=== PATIENT | female | born 1960 | race Hispanic/Latino ===

== ENCOUNTER → 2018-08-28 | Outpatient (CLI) | payer OTHER, SELFPAY | END | disposition home or self-care (01) | LOC: OIH 10:44 | PROVIDERS: ATTEND Internal Medicine Cardiovascular Disease | DX: Z13.6 Encounter for screening for cardiovascular disorders (principal) | CPT/HCPCS: 75571 ==

== ENCOUNTER 2018-09-19 08:30 | Emergency (ER) | payer OTHER ==
[2018-09-19 08:48] LABS: APPEARANCE,URINE Cloudy (CLEAR); BILIRUBIN,URINE Negative (NEGATIVE); COLOR,URINE Dark Yellow (YELLOW); GLUCOSE, URINE (UA) Negative (NEGATIVE); KETONES,URINE Negative (NEGATIVE); LEUKOCYTE ESTERASE ,URINE Negative (NEGATIVE); NITRATE,URINE Negative (NEGATIVE); OCCULT BLOOD,URINE Negative (NEGATIVE); PROTEIN,URINE Negative (NEGATIVE); UROBILINOGEN,URINE 0.2 mg/dL (0.2-1.0)
[2018-09-19 09:01] LABS: RBC,URINE 0-1 /HPF (0-1)
[2018-09-19 09:02] LABS: BACTERIA,URINE Moderate /HPF (None Seen)
[2018-09-19] MEDS ORDERED: IBUPROFEN 400 MG TABLET ONE (09:19)
[2018-09-19 09:35] LABS: AMPHET/METH SCREEN,URINE NEGATIVE (NEGATIVE); BARBITURATE SCREEN, URINE NEGATIVE (NEGATIVE); BENZODIAZEPINES SCREEN,URINE NEGATIVE (NEGATIVE); CANNABINOID SCREEN,URINE NEGATIVE (NEGATIVE); COCAINE SCREEN,URINE NEGATIVE (NEGATIVE); OPIATE SCREEN,URINE NEGATIVE (NEGATIVE); PHENCYCLIDINE SCREEN,URINE NEGATIVE (NEGATIVE)
[2018-09-19 09:43] LABS: CREATININE 0.6 mg/dL (0.5-1.5); POTASSIUM 4.2 mmol/L (3.5-5.1)
== END 2018-09-19 11:11 | disposition home or self-care (01) ==
LOC: EDH 08:30
DX: R51 Headache (principal); R06.02 Shortness of breath; M54.2 Cervicalgia; I10 Essential (primary) hypertension; Z90.710 Acquired absence of both cervix and uterus; Z90.49 Acquired absence of other specified parts of digestive tract
CPT/HCPCS: 36415; 70450; 80048; 80305; 81001; 93975

== ENCOUNTER → 2018-09-19 | Outpatient (CLI) | payer OTHER | END | disposition home or self-care (01) | LOC: SHCH 07:48 | PROVIDERS: ATTEND Internal Medicine Cardiovascular Disease | DX: I10 Essential (primary) hypertension (principal); M62.838 Other muscle spasm | CPT/HCPCS: 93975 ==

== ENCOUNTER 2020-02-24 17:47 | Emergency (ER) | payer OTHER ==
[2020-02-24] MEDS ORDERED: ASPIRIN 325 MG TABLET ONE (18:02)
[2020-02-24 18:06] LABS: BASOPHILS % (AUTO) 0.6 % (0.0-5.0); EOSINOPHILS % (AUTO) 1.4 % (0.0-8.0); HEMATOCRIT 40.7 % (36-48); LYMPHOCYTES % (AUTO) 28.6 % (21.0-51.0); MEAN CORPUSCULAR HEMOGLOBIN 30.3 pg (27.0-33.0); MEAN CORPUSCULAR HGB CONC 33.4 g/dL (32.0-36.0); MEAN CORPUSCULAR VOLUME 90.6 fL (79-99); MONOCYTES % (AUTO) 5.9 % (3.0-13.0); NEUTROPHILS % (AUTO) 63.1 % (40.0-77.0); PLATELET COUNT (AUTO) 279 K/uL (130-400); RED BLOOD CELL COUNT(AUTO) 4.49 MIL/uL (4.00-5.50); RED CELL DISTRIBUTION WIDTH 12.6 % (11.0-15.5)
[2020-02-24 18:18] LABS: CREATININE 0.9 mg/dL (0.5-1.5); POTASSIUM 3.4 mmol/L (3.5-5.1)
[2020-02-24 18:19] LABS: INR 0.93 (0.85-1.15); PARTIAL THROMBOPLASTIN TIME 27.2 SEC (26.3-35.5); PROTHROMBIN TIME 10.1 SEC (9.6-11.6)
[2020-02-24 18:23] LABS: ALBUMIN 3.9 g/dL (3.5-5.0); BILIRUBIN,TOTAL 0.6 mg/dL (0.2-1.0); TOTAL PROTEIN, SERUM 7.6 g/dL (6.0-8.3)
== END 2020-02-24 19:16 | disposition home or self-care (01) ==
LOC: EDH 17:47
DX: R00.2 Palpitations (principal); I10 Essential (primary) hypertension; E03.9 Hypothyroidism, unspecified; Z90.49 Acquired absence of other specified parts of digestive tract; Z90.710 Acquired absence of both cervix and uterus
CPT/HCPCS: 36415; 71045; 80053; 82550; 84484; 85025; 85610; 85730; 93005

== ENCOUNTER 2020-02-25 18:36 | Inpatient (IN) | payer OTHER ==
[~2020-02-25] VITALS: Ht 162.6 cm; Wt 96.2 kg
[2020-02-25 19:59] LABS: BASOPHILS % (AUTO) 0.6 % (0.0-5.0); HEMATOCRIT 39.8 % (36-48); LYMPHOCYTES % (AUTO) 27.2 % (21.0-51.0); MEAN CORPUSCULAR HEMOGLOBIN 30.6 pg (27.0-33.0); MEAN CORPUSCULAR HGB CONC 34.2 g/dL (32.0-36.0); MEAN CORPUSCULAR VOLUME 89.6 fL (79-99); MONOCYTES % (AUTO) 6.3 % (3.0-13.0); NEUTROPHILS % (AUTO) 64.8 % (40.0-77.0); PLATELET COUNT (AUTO) 266 K/uL (130-400); RED BLOOD CELL COUNT(AUTO) 4.44 MIL/uL (4.00-5.50); RED CELL DISTRIBUTION WIDTH 12.6 % (11.0-15.5); WHITE BLOOD COUNT (AUTO) 6.8 K/uL (4.8-10.8)
[2020-02-25 20:32] LABS: CREATININE 0.8 mg/dL (0.5-1.5); POTASSIUM 3.5 mmol/L (3.5-5.1)
[2020-02-25 20:32] LABS: AMPHET/METH SCREEN,URINE NEGATIVE (NEGATIVE); BARBITURATE SCREEN, URINE NEGATIVE (NEGATIVE); BENZODIAZEPINES SCREEN,URINE NEGATIVE (NEGATIVE); CANNABINOID SCREEN,URINE NEGATIVE (NEGATIVE); COCAINE SCREEN,URINE NEGATIVE (NEGATIVE); OPIATE SCREEN,URINE NEGATIVE (NEGATIVE); PHENCYCLIDINE SCREEN,URINE NEGATIVE (NEGATIVE)
[2020-02-25 20:36] LABS: BILIRUBIN,TOTAL 0.7 mg/dL (0.2-1.0)
[2020-02-25 20:37] LABS: ALBUMIN 3.9 g/dL (3.5-5.0); TOTAL PROTEIN, SERUM 7.2 g/dL (6.0-8.3)
[2020-02-25] MEDS ORDERED: SODIUM CHLORIDE 0.9% 1000ML 1,000 ML IV SCH (20:45)
[2020-02-25] MEDS ORDERED: KETOROLAC TROMETHAMINE 15MG/ML IV PRN (21:00)
[2020-02-25] MEDS: FAMOTIDINE/PF 20 MG/2 ML VIAL IV SCH (21:00)
[2020-02-25] MEDS ORDERED: ONDANSETRON HCL 4 MG/2 ML VIAL IVP PRN (21:00)
[2020-02-25] MEDS ORDERED: HYDRALAZINE HCL 20 MG/ML VIAL IV PRN (21:00)
[2020-02-25] MEDS ORDERED: SODIUM CHLORIDE 0.9% 1000ML 1,000 ML IV ONE (21:33)
[2020-02-25] MEDS ORDERED: KETOROLAC TROMETHAMINE 15MG/ML ONE (21:33)
--- NOTE | 2020-02-26 02:00 | NUR ---
PATIENT ARRIVED ON UNIT. DENIES PALPITATIONS. NO CHEST PAIN OR SOB. 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 RESTING IN BED. HOME MEDICATIONS ENTERED.
--- NOTE | 2020-02-26 02:30 | NUR ---
24 HOUR URINE COLLECTION STARTED
[2020-02-26 02:37] VITALS: BP 105/77
[2020-02-26 04:00] VITALS: BP 97/62
[2020-02-26 05:51] LABS: BASOPHILS % (AUTO) 0.8 % (0.0-5.0); EOSINOPHILS % (AUTO) 1.4 % (0.0-8.0); HEMATOCRIT 36.7 % (36-48); LYMPHOCYTES % (AUTO) 34.1 % (21.0-51.0); MEAN CORPUSCULAR HEMOGLOBIN 30.8 pg (27.0-33.0); MEAN CORPUSCULAR HGB CONC 33.5 g/dL (32.0-36.0); MEAN CORPUSCULAR VOLUME 91.8 fL (79-99); MONOCYTES % (AUTO) 7.9 % (3.0-13.0); NEUTROPHILS % (AUTO) 55.6 % (40.0-77.0); PLATELET COUNT (AUTO) 236 K/uL (130-400); RED CELL DISTRIBUTION WIDTH 12.6 % (11.0-15.5); WHITE BLOOD COUNT (AUTO) 6.2 K/uL (4.8-10.8)
[2020-02-26 06:06] LABS: HEMOGLOBIN A1C 6.2 % (4.0-6.0)
[2020-02-26 06:29] LABS: ALANINE AMINOTRANSFERASE 37 U/L (12-78); ALBUMIN 3.3 g/dL (3.5-5.0); ASPARTATE AMINOTRANSFERASE 17 U/L (10-37); BILIRUBIN,TOTAL 0.7 mg/dL (0.2-1.0); CARBON DIOXIDE 30 mmol/L (21-32); CHLORIDE 107 mmol/L (101-111); CHOLESTEROL 111 mg/dL (<200); CREATINE KINASE, TOTAL 37 U/L (21-232); CREATININE 0.8 mg/dL (0.5-1.5); GLOMERULAR FILTR. RATE CALC 78 mL/min (>60); GLUCOSE,RANDOM 97 mg/dL (70-105); HDL CHOLESTEROL 35 mg/dL (35-85); LDL DIRECT 64 mg/dL (0-99); MYOGLOBIN 44 ng/mL (10-92); POTASSIUM 3.8 mmol/L (3.5-5.1); SODIUM SERUM 142 mmol/L (136-145); TOTAL PROTEIN, SERUM 6.5 g/dL (6.0-8.3); TRIGLYCERIDES 72 mg/dL (30-200); TROPONIN I < 0.04 ng/mL (0.00-0.06); UREA NITROGEN, BLOOD 11 mg/dL (7-18)
[2020-02-26 07:00] VITALS: BP 104/58
--- NOTE | 2020-02-26 07:35 | NUR ---
ASSESSMENT ENCOUNTERED PT A&OX3, CALM COOPERATIVE AND DOES NOT APPEAR TO BE IN ANY DISTRESS NOR ANY NEURO DEFICITS PRESENT. PT DENIES PAIN, SOB, NAUSEA. PT IS AMBULATORY, GAIT STEADY AND STRONG WITH STAND BY ASSIST. PT IS NPO UNTIL SEEN BY HOSPITALIST. CALL LIGHT WITHIN REACH.
[2020-02-26] MEDS ORDERED: ATEN100T PO (07:38)
[2020-02-26] MEDS ORDERED: LISI-613 PO (07:38)
[2020-02-26] MEDS ORDERED: LEVO100 PO (07:38)
[2020-02-26] MEDS ORDERED: ATOR20TA65 PO (07:38)
[2020-02-26] MEDS: FAMOTIDINE/PF 20 MG/2 ML VIAL IV SCH (10:01)
[2020-02-26] MEDS ORDERED: ESTR1TAB17 PO (10:21)
[2020-02-26] MEDS ORDERED: ASPI-1197 PO (10:21)
[2020-02-26] MEDS ORDERED: VITA1TAB22 PO (10:33)
[2020-02-26] MEDS ORDERED: SUMA50TA17 PO (10:33)
[2020-02-26] MEDS ORDERED: CIDE500T PO (10:33)
[2020-02-26] MEDS ORDERED: CHOL2000 PO (10:33)
--- NOTE | 2020-02-26 12:00 | NUR ---
AGAINST MEDICAL ADVICE DR NEIL AT BEDSIDE AND INFORMED OF RISKS OF LEAVING AGAINST MEDICAL ADVICE, FORM SIGNED, PT TAKEN TO FAMILY VEHICLE VIA WHEELCHAIR.
== END 2020-02-26 12:03 | disposition left against medical advice (07) | DRG 392 ==
LOC: EDH 18:36 → EDHIP 20:28 → 4DH 02-26 02:15
PROVIDERS: ADMIT Internal Medicine; ATTEND Internal Medicine
DX: K59.00 Constipation, unspecified (principal); I10 Essential (primary) hypertension; R00.2 Palpitations; E03.9 Hypothyroidism, unspecified; R03.0 Elevated blood-pressure reading, without diagnosis of hypertension; R51 Headache; Z90.710 Acquired absence of both cervix and uterus
CPT/HCPCS: 36415; 71045; 74176; 80053; 80061; 80305; 82550; 83036; 83874; 84443; 84484; 85025; 85610; 85730; 93005; G0378; J1885; J3490; J7030

== ENCOUNTER → 2020-03-26 | Outpatient (CLI) | payer OTHER ==
[~2020-03-26] MED LIST: ASPI-1197 PO; ATEN100T PO; ATOR20TA65 PO; CHOL2000 PO; CIDE500T PO; ESTR1TAB17 PO; LEVO100 PO; LISI-613 PO; SUMA50TA17 PO; VITA1TAB22 PO
== END | disposition home or self-care (01) ==
LOC: SHCH 12:42
PROVIDERS: ATTEND Internal Medicine Cardiovascular Disease
DX: I10 Essential (primary) hypertension (principal)
CPT/HCPCS: 93306; 93356

== ENCOUNTER 2024-10-02 15:44 | Emergency (ER) | payer BC, OTHER ==
[~2024-10-02] VITALS: Ht 157.5 cm; Wt 97.5 kg
[~2024-10-02 15:44] MED LIST changes: -LISI-613 PO; +LISI20TA24 PO; +VITA-427 PO; -VITA1TAB22 PO
[2024-10-02 16:09] LABS: APPEARANCE,URINE CLEAR (CLEAR); BILIRUBIN,URINE NEGATIVE (NEGATIVE); COLOR,URINE YELLOW (YELLOW); GLUCOSE, URINE (UA) NEGATIVE (NEGATIVE); KETONES,URINE 5 mg/dL (NEGATIVE); LEUKOCYTE ESTERASE ,URINE 250 Leu/uL (NEGATIVE); NITRATE,URINE NEGATIVE (NEGATIVE); OCCULT BLOOD,URINE NEGATIVE (NEGATIVE); PH,URINE 5.5 (5.0-8.0); PROTEIN,URINE 30 mg/dL (NEGATIVE)
[2024-10-02 16:12] LABS: ADD UA MICROSCOPIC YES
[2024-10-02 16:15] LABS: BACTERIA,URINE RARE /HPF (None Seen); MUCUS,URINE RARE LPF (None Seen); OTHER CASTS, URINE 5 /LPF (None Seen); SQUAMOUS EPITHELIAL CELL,UR FEW /HPF (0-2)
[2024-10-02 16:37] LABS: BASOPHILS # (AUTO) 0.05 K/uL (0.00-0.20); BASOPHILS % (AUTO) 0.5 % (0.0-5.0); EOSINOPHILS # (AUTO) 0.06 K/uL (0.00-0.70); EOSINOPHILS % (AUTO) 0.6 % (0.0-8.0); HEMATOCRIT 42.3 % (36-48); IMMATURE GRANULOCYTE ABSOLUTE 0.03 K/uL (0-1); LYMPHOCYTES # (AUTO) 1.5 K/uL (1.0-4.8); LYMPHOCYTES % (AUTO) 15.8 % (21.0-51.0); MEAN CORPUSCULAR HEMOGLOBIN 29.6 pg (27.0-33.0); MEAN CORPUSCULAR HGB CONC 33.3 g/dL (32.0-36.0); MEAN CORPUSCULAR VOLUME 88.7 fL (79-99); MONOCYTES # (AUTO) 0.6 K/uL (0.1-1.0); MONOCYTES % (AUTO) 6.6 % (3.0-13.0); NEUTROPHILS # (AUTO) 7.4 K/uL (1.8-7.7); NEUTROPHILS % (AUTO) 76.2 % (40.0-77.0); PLATELET COUNT (AUTO) 323 K/uL (130-400); RED BLOOD CELL COUNT(AUTO) 4.77 MIL/uL (4.00-5.50); RED CELL DISTRIBUTION WIDTH 13.2 % (11.0-15.5); WHITE BLOOD COUNT (AUTO) 9.7 K/uL (4.8-10.8)
[2024-10-02] MEDS: 0.9%NACL 1000ML 1,000 ML IV ONE (16:38)
[2024-10-02 16:51] LABS: CREATININE 1.3 mg/dL (0.5-1.0)
[2024-10-02 17:01] LABS: POTASSIUM 2.9 mmol/L (3.5-5.1)
--- NOTE | 2024-10-02 17:01 | HMCIMG ---
CHEST 1VW HISTORY: Syncope COMPARISON: 02/24/2020 FINDINGS: A frontal projection of the chest was obtained. No acute pulmonary infiltrates is seen. The heart is borderline enlarged. No evidence of aortic calcification is seen. IMPRESSION: 1. No acute pulmonary infiltrate is seen.
--- NOTE | 2024-10-02 17:34 | ERN ---
General Chief Complaint: Syncope Stated Complaint: NEAR SYNCOPE Time Seen by MD: 17:09 Time Seen by Midlevel: 17:09 Source: patient History of Present Illness Initial Comments Patient is a 64-year-old female with a past medical history of hypertension presenting to the emergency department for evaluation of dizziness, muscle cramping, and generalized body weakness. She was seen at a local urgent care proximally one week ago for the same complaint and was told she was dehydrated. Current medications include amlodipine, and hydrochlorothiazide. Allergies: Coded Allergies: No Known Drug Allergies (Verified Allergy, Unknown, 02/25/20) Home Meds Reported Medications Cider Vinegar (Apple Cider Vinegar) 500 Mg Tablet, 450 MG PO DAILY, TAB 02/26/20 Cholecalciferol (Vitamin D3) (Vitamin D3) 50 Mcg Capsule, 50 MCG PO DAILY, CAP 02/26/20 Vitamin B Complex (Vitamin B Complex) 1 Each Tablet, 1 EACH PO DAILY, TAB 02/26/20 Sumatriptan Succinate (Sumatriptan Succinate) 50 Mg Tablet, 50 MG PO AD, TAB 02/26/20 Aspirin (Aspirin) 81 Mg Tab.chew, 81 MG PO DAILY, TAB.CHEW 02/26/20 Estradiol (Estradiol) 1 Mg Tablet, 1 MG PO DAILY, TAB 02/26/20 Levothyroxine Sodium (Levothroid/Synthroid) 100 Mcg Tab, 100 MCG PO AM 02/26/20 Lisinopril (Lisinopril) 20 Mg Tablet, 20 MG PO QDP 02/26/20 Atenolol (Atenolol) 100 Mg Tablet, 100 MG PO BID 02/26/20 Atorvastatin Calcium (Atorvastatin Calcium) 20 Mg Tablet, 20 MG PO QDP 02/26/20 Past Medical History Past Medical History: High Cholesterol, Hypertension, Hypothyroid, Migraines Past Surgical History: None ROS Dictation CONSTITUTIONAL: Negative except for HPI HEAD/FACE: Negative except for HPI EENT: Negative except for HPI RESPIRATORY: Negative except for HPI GASTROINTESTINAL/ABDOMINAL: Negative except for HPI GENITOURINARY: Negative except for HPI MUSCULOSKELETAL: Negative except for HPI INTEGUMENTARY: Negative except for HPI NEUROLOGICAL/PSYCH: Negative except for HPI HEMATOLOGIC/LYMPHATIC: Negative except for HPI All Systems Negative, Except as noted above. 13 point review of systems assessed and all negative except for above. Physical Exam Physical Exam Dictation Vital Signs reviewed General Appearance: Alert, oriented x 3, no acute distress, well developed, nourished. Head and Face: non-traumatic. Eyes: PERRL, pink conjunctivas, eyelid no trauma, anterior chamber with arcus senilis. Ears: Pinnas intact and no signs of trauma or erythema ear canals clear and no discharge TM no erythema Nose: No discharge, no bleeding. Oropharynx: Mouth normal, tongue pink, pharynx clear,no erythema, tonsils no exudates, no abscesses noted, mucous membrane moist Neck: Supple, non-tender, no thyromegaly, no masses, no JVD, no bruits Breast:Deferred Chest:No tenderness, no crepitus, no paradoxical movement, no retractions Lungs:Clear, well-ventilated, symmetric, no rales, no wheezing, no rhonchi, no stridor, good breath sounds bilaterally Heart: Regular rate, regular rhythm, no murmur, no gallops Vascular: no peripheral edema, Abdomen: Soft, positive bowel sounds, nondistended, no guarding, nontender, no rebound, no masses no hepatomegaly, no splenomegaly, no Howard's sign, no hernias. Rectal: Deferred Genital: Deferred Neurological: Normal speech, motor function intact, sensory function intact Musculoskeletal: Neck nontender, full range of motion, back nontender, full range of motion, Extremities: nontender, full range of motion Skin: Color pink, dry, no turgor, no rash, no lacerations, no abrasions, no contusions. Lymphatic: Deferred Results Laboratory and Microbiology Lab and Micro Result Laboratory Tests Test 10/02/24 16:00 10/02/24 16:16 Urine Color YELLOW (YELLOW) Urine Appearance CLEAR (CLEAR) Urine pH 5.5 (5.0-8.0) Urine Specific [place] 1.026 (1.001-1.031) Urine Protein 30 mg/dL (NEGATIVE) H Urine Glucose (UA) NEGATIVE mg/dL (NEGATIVE) Urine Ketones 5 mg/dL (NEGATIVE) H Urine Occult Blood NEGATIVE (NEGATIVE) Urine Nitrate NEGATIVE (NEGATIVE) Urine Bilirubin NEGATIVE mg/dL (NEGATIVE) Urine Urobilinogen 2.0 mg/dL (0.2-1.0) H Urine Leukocyte Esterase 250 Pb/uL (NEGATIVE) H Urine RBC 2-5 /HPF (0-1) H Urine WBC 11-25 /HPF (0-1) H Urine Squamous Epithelial Cells FEW /HPF (0-2) Urine Bacteria RARE /HPF (None Seen) Urine Hyaline Casts 11-25 /LPF (0-1 /LPF) H Urine Other Casts 5 /LPF (None Seen) White Blood Count 9.7 K/uL (4.8-10.8) Red Blood Count 4.77 MIL/uL (4.00-5.50) Hemoglobin 14.1 g/dL (12.0-16.0) Hematocrit 42.3 % (36-48) Mean Corpuscular Volume 88.7 fL (79-99) Mean Corpuscular Hemoglobin 29.6 pg (27.0-33.0) Mean Corpuscular Hemoglobin Concent 33.3 g/dL (32.0-36.0) Red Cell Distribution Width 13.2 % (11.0-15.5) Platelet Count 323 K/uL (130-400) Mean Platelet Volume 10.4 fL (7.5-10.5) Immature Granulocyte % (Auto) 0.3 % (0-1) Neutrophils (%) (Auto) 76.2 % (40.0-77.0) Lymphocytes (%) (Auto) 15.8 % (21.0-51.0) L Monocytes (%) (Auto) 6.6 % (3.0-13.0) Eosinophils (%) (Auto) 0.6 % (0.0-8.0) Basophils (%) (Auto) 0.5 % (0.0-5.0) Neutrophils # (Auto) 7.4 K/uL (1.8-7.7) Lymphocytes # (Auto) 1.5 K/uL (1.0-4.8) Monocytes # (Auto) 0.6 K/uL (0.1-1.0) Eosinophils # (Auto) 0.06 K/uL (0.00-0.70) Basophils # (Auto) 0.05 K/uL (0.00-0.20) Absolute Immature Granulocyte (auto 0.03 K/uL (0-1) Nucleated Red Blood Cells 0.0 % (0.0-0.19) D-Dimer Quantitative (PE/DVT) 338 ng/mL (0-500) Sodium Level 139 mmol/L (136-145) Potassium Level 2.9 mmol/L (3.5-5.1) *L Chloride Level 101 mmol/L (101-111) Carbon Dioxide Level 28 mmol/L (21-32) Blood Urea Nitrogen 20 mg/dL (7-18) H Creatinine 1.3 mg/dL (0.5-1.0) H Glomerular Filtration Rate Calc 46 mL/min (>90) Random Glucose 139 mg/dL (70-105) H Total Calcium 9.2 mg/dL (8.5-10.1) Total Creatine Kinase 41 U/L (21-232) Troponin I High Sensitivity 5.1 ng/L (4-50) Labs Reviewed?: Yes MDM MDM: Patient is a 64-year-old female with a past medical history of hypertension presenting to the emergency department for evaluation of dizziness, muscle cramping, and generalized body weakness. She was seen at a local urgent care proximally one week ago for the same complaint and was told she was dehydrated. Current medications include amlodipine, and hydrochlorothiazide. Initial vital signs are remarkable for a blood pressure 123/80. Heart rate is 79 beats per minute. O2 saturation is 95% on room air. On physical examination the patient was in no acute distress. Neurological examination is unremarkable. CBC shows no leukocytosis, no anemia, no thrombocytopenia. Chemistries reveal a potassium level of 2.9. There is a slight elevation in creatinine at 1.3 and a BUN of 20. Patient was given 1 L of IV fluids. She does report taking 25 mg of hydrochlorothiazide which could be the reason for the hypokalemia. She was advised to follow up with your primary care doctor for possible medication adjustment. Otherwise the remainder of her blood work is unremarkable. Her physical examination is unremarkable. Her vital signs have remained stable. The patient will be discharged after p.o. potassium was given. Differential diagnosis: Dehydration, electrolyte abnormality, anemia There are no social concerns with this patient. Prescription drug management Prescriptions will include: None Medical management and examination interpretation discussions were had by me with other qualified healthcare professionals as indicated for the patient's care. ED Course Orders Procedure Category Date Status Time Cbc With Differential LAB 10/02/24 Complete 15:47 Cardiac Panel LAB 10/02/24 Complete 15:47 D-Dimer LAB 10/02/24 Complete 15:47 Urinalysis Profile LAB 10/02/24 Complete 15:47 Chest 1vw RAD 10/02/24 Resulted 15:47 12 Lead Ekg Tracing- EKG 10/02/24 Resulted Technical 15:47 0.9%Nacl 1000ml (Ns PHA 10/02/24 Complete 1000ml) 16:00 Basic Metabolic Panel LAB 10/02/24 Complete 15:47 Culture Urine BRITTANIE 10/02/24 In Process 16:12 Potassium Bicarb/Cit PHA 10/02/24 Complete Ac 25meq (K-Lyte Ta 17:30 Current Medications Medications (Trade) Dose Ordered Sig/Nell Route PRN Reason Start Time Stop Time Status Last Admin Dose Admin Potassium Bicarbonate (K-Lyte Tablet Eff 25 Meq Tablet.eff) 50 meq ONCE ONCE PO 10/02/24 17:30 10/02/24 17:31 DC 10/02/24 17:56 Sodium Chloride 1,000 ml @ 0 mls/hr ONCE ONCE IV 10/02/24 16:00 10/02/24 16:01 DC 10/02/24 16:38 Vital Signs Date Time Temp Pulse Resp B/P (MAP) Pulse Ox O2 Delivery O2 Flow Rate FiO2 10/02/24 18:32 98.6 72 18 128/74 95 Room Air* 0 21 10/02/24 16:07 98.6 79 18 123/80 95 Room Air* 0 21 10/02/24 15:47 79 18 123/80 95 Room Air 0 DX & DISP Disposition: Discharge Departure Impression: Primary Impression: Hypokalemia Condition: Stable Additional Instructions: Your blood work today showed a potassium level of 2.9. This may be caused by your blood pressure medication (hydrochlorothiazide). Please follow up with your primary care doctor for possible medication adjustment. Return to the ER if you develop any new or worsening symptoms Referrals: SELF,REFERRAL (PCP) Time of Disposition: 17:30 I have reviewed the case, and I agree with, Diagnosis and Plan I performed the substantive portion of the visit. I have reviewed and personally made and approve the management plan that is documented in the note by myself or the GEGE. I acknowledge for responsibility for the patient's management plan. GRANT HUITRON Oct 02, 2024 17:34 JORDY VALDEZ DO October 04, 2024 10:03
[2024-10-02] MEDS: PoTASSium BIcarbonate/CIT AC 25 MEQ TABLET.EFF PO ONE (17:56)
[2024-10-02 18:32] VITALS: BP 128/74; PULSE 72; RESP 18; TEMP 98.6; O2SAT 95
--- NOTE | 2024-10-03 08:40 | EKG ---
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
== END 2024-10-02 18:36 | disposition home or self-care (01) ==
LOC: EDH 15:44
DX: E87.6 Hypokalemia (principal); E03.9 Hypothyroidism, unspecified; E78.00 Pure hypercholesterolemia, unspecified; I10 Essential (primary) hypertension; G43.909 Migraine, unspecified, not intractable, without status migrainosus; Z79.82 Long term (current) use of aspirin; Z79.899 Other long term (current) drug therapy
CPT/HCPCS: 99284; 71045; 82550; 84484; 80048; 85025; 85378; 87086; 81001; 36415; 93005; J7030